=== PATIENT | female | born 1950 | race Caucasian/White ===

== ENCOUNTER → 2016-06-20 | Outpatient (CLI) | payer MEDICARE, OTHER ==
[~2016-06-20] MED LIST: ADVIL200 MG PO; ASPIRIN 32325 MG/TAB PO; ASPIRIN 81M81 MG/TA2 PO; CEPHALEXIN500 M1 PO; ELIQUIS 5MG PO; PACERONE400 MG PO; TAMBOCOR 1100 MG/TAB PO; TAZTIA120 PO; TENORMIN 2525 MG/TAB PO; VITAMIN D 1001000 IU PO; VITAMIN D1000 IU PO; ZESTRIL2.5 MG PO
== END ==
LOC: MC.RAD 09:38
DX: Z12.31 Encounter for screening mammogram for malignant neoplasm of breast (principal)

== ENCOUNTER 2016-06-30 08:07 | Outpatient (CLI) | payer MEDICARE, OTHER ==
[~2016-06-30] VITALS: Ht 167.7 cm; Wt 61.4 kg
[2016-06-30] VITALS (11 sets, daily range): BP systolic 94–155; BP diastolic 50–90; PULSE 60–76; TEMP 97–98
[~2016-06-30 08:07] MED LIST changes: -ADVIL200 MG PO; -ELIQUIS 5MG PO; -PACERONE400 MG PO; -TAMBOCOR 1100 MG/TAB PO; -TAZTIA120 PO; -TENORMIN 2525 MG/TAB PO; -VITAMIN D 1001000 IU PO; -ZESTRIL2.5 MG PO
[2016-06-30] MEDS ORDERED: TAMBOCOR 1100 MG/TAB PO (08:37)
[2016-06-30] MEDS ORDERED: TAZTIA120 PO (08:37)
[2016-06-30] MEDS ORDERED: ADVIL200 MG PO (08:38)
[2016-06-30 08:49] LABS: HEMATOCRIT 39.8 % (37.0-47.0); HEMOGLOBIN 13.3 g/dl (12.5-16.0); MEAN CELL VOLUME 99 fl (80.0-100.0); MEAN CORPUSCULAR HEMOGLOBIN 33 pg (27.0-31.0); MEAN CORPUSCULAR HGB CONC 33 g/dl (33.0-37.0); MEAN PLATELET VOLUME 11.2 fl (7.4-10.4); PLATELET COUNT 171 K/mm3 (130-400); RED BLOOD COUNT 4.04 M/mm3 (4.10-5.30); REDCELL DISTRIBUTION WIDTH-CV 13.3 % (11.5-14.5); WHITE BLOOD COUNT 3.1 K/mm3 (4.8-10.8)
[2016-06-30 08:56] LABS: PROTHROMBIN TIME 11.3 SECONDS (9.7-12.8)
[2016-06-30 09:12] LABS: CALCIUM 8.5 mg/dL (8.4-10.2); CREATININE, serum 1.06 mg/dL (0.52-1.25); POTASSIUM 4.3 mmol/L (3.4-5.0)
== END 2016-06-30 13:08 | disposition home or self-care (01) ==
LOC: COL.RAD 08:07
PROVIDERS: Internal Medicine Interventional Cardiology
DX: I08.0 Rheumatic disorders of both mitral and aortic valves (principal); I50.22 Chronic systolic (congestive) heart failure; I48.91 Unspecified atrial fibrillation; Z95.818 Presence of other cardiac implants and grafts; Z79.82 Long term (current) use of aspirin; Z79.899 Other long term (current) drug therapy
CPT/HCPCS: J2250; J3010

== ENCOUNTER 2016-08-18 05:15 | Observation (INO) | payer MEDICARE, OTHER ==
[~2016-08-18] VITALS: Ht 167.6 cm; Wt 62.7 kg
[2016-08-18] VITALS (11 sets, daily range): BP systolic 60–125; BP diastolic 36–71; PULSE 72–92; TEMP 97.1–98.3
[~2016-08-18 05:15] MED LIST changes: +ADVIL200 MG PO; +TAMBOCOR 1100 MG/TAB PO; +TAZTIA120 PO
[2016-08-18] MEDS ORDERED: VITAMIN D 1001000 IU PO (05:22)
[2016-08-18] MEDS ORDERED: TENORMIN 2525 MG/TAB PO (05:23)
[2016-08-18 05:54] LABS: BASO % 0.8 % (0.0-2.0); EOS # 0.1 (0.0-0.7); EOS % 3.2 % (0-4.0); GRAN # 1.9 (1.4-6.5); GRAN % 49.7 % (42.2-75.2); HEMATOCRIT 39.1 % (37.0-47.0); HEMOGLOBIN 13.5 g/dl (12.5-16.0); LYMPH # 1.2 (1.2-3.4); LYMPH % 32.3 % (20.0-51.0); MEAN CELL VOLUME 97 fl (80.0-100.0); MEAN CORPUSCULAR HEMOGLOBIN 33 pg (27.0-31.0); MEAN CORPUSCULAR HGB CONC 35 g/dl (33.0-37.0); MEAN PLATELET VOLUME 11.3 fl (7.4-10.4); MONO # 0.5 (0.1-0.6); MONO % 13.7 % (1.7-9.3); PLATELET COUNT 161 K/mm3 (130-400); RED BLOOD COUNT 4.04 M/mm3 (4.10-5.30); REDCELL DISTRIBUTION WIDTH-CV 13.1 % (11.5-14.5); WHITE BLOOD COUNT 3.7 K/mm3 (4.8-10.8)
[2016-08-18 06:07] LABS: ADJUSTED CALCIUM 8.9 mg/dL (8.4-10.2); ALANINE AMINOTRANSFERASE 59 U/L (9-52); ALBUMIN 3.7 gm/dL (3.5-5.0); ALKALINE PHOSPHATASE 60 U/L (50-136); ANION GAP 9 mmol/L (7-16); BILIRUBIN,TOTAL 0.7 mg/dL (0.0-1.0); BLOOD UREA NITROGEN 25 mg/dL (7-17); CALCIUM 8.7 mg/dL (8.4-10.2); CARBON DIOXIDE 26 mmol/L (22-30); CHLORIDE 106 mmol/L (98-107); CREATININE, serum 0.99 mg/dL (0.52-1.25); GLUCOSE 93 mg/dL (74-106); SODIUM 141 mmol/L (137-145)
[2016-08-18 06:18] LABS: B-TYPE NATRIURETIC PEPTIDE 2750 pg/mL (0-125)
[2016-08-18 06:23] LABS: TROPONIN-I < 0.012 ng/mL (0.000-0.034)
[2016-08-19 04:07] VITALS: BP 123/69; PULSE 65; TEMP 98.3
[2016-08-19 09:11] VITALS: BP 106/72; PULSE 64; TEMP 97.4
[2016-08-19] MEDS ORDERED: ELIQUIS 5MG PO (11:19)
[2016-08-19] MEDS ORDERED: PACERONE400 MG PO (11:20)
[2016-08-19] MEDS ORDERED: ZESTRIL2.5 MG PO (11:20)
== END 2016-08-19 14:03 | disposition home or self-care (01) ==
LOC: COL.ER 05:15 → PEDS 06:44
PROVIDERS: Emergency Medicine
DX: I48.91 Unspecified atrial fibrillation (principal); I48.92 Unspecified atrial flutter; I35.1 Nonrheumatic aortic (valve) insufficiency; I34.0 Nonrheumatic mitral (valve) insufficiency; Z79.01 Long term (current) use of anticoagulants
CPT/HCPCS: G0378; J2250; J3010; J7030

== ENCOUNTER → 2016-09-20 | Outpatient (CLI) | payer MEDICARE, OTHER ==
[~2016-09-20] MED LIST changes: +ELIQUIS 5MG PO; +PACERONE400 MG PO; +TENORMIN 2525 MG/TAB PO; +VITAMIN D 1001000 IU PO; +ZESTRIL2.5 MG PO
== END ==
LOC: COL.RAD 08:04
DX: K76.89 Other specified diseases of liver (principal); N28.89 Other specified disorders of kidney and ureter

== ENCOUNTER → 2017-07-12 | Outpatient (CLI) | payer MEDICARE, OTHER ==
[~2017-07-12] MED LIST changes: +CORDARONE200 MG/TAB PO; +COREG 3.123.125 MG/T PO; +PROTONIX 40MG T40 MG PO
== END ==
LOC: MC.RAD 06-25 14:00
DX: Z12.31 Encounter for screening mammogram for malignant neoplasm of breast (principal)

== ENCOUNTER 2017-07-17 13:53 | Outpatient (CLI) | payer MEDICARE, OTHER ==
[~2017-07-17] VITALS: Ht 167.6 cm; Wt 62.2 kg
[2017-07-17] MEDS ORDERED: TAMBOCOR50 MG PO (14:37)
[2017-07-17] MEDS ORDERED: PRINIVIL2.5 MG PO (14:38)
[2017-07-17] MEDS ORDERED: ROBITUSSIN A-C S1 M1 PO (14:39)
[2017-07-17 14:45] VITALS: BP 111/59; PULSE 78; TEMP 97.8
[2017-07-17 17:16] LABS: CALCIUM 7.4 mg/dL (8.4-10.2); CREATININE, serum 0.78 mg/dL (0.52-1.25); POTASSIUM 4.4 mmol/L (3.4-5.0)
== END 2017-07-17 17:54 ==
LOC: EUO 13:53
PROVIDERS: Registered Nurse
DX: E87.1 Hypo-osmolality and hyponatremia (principal); E83.51 Hypocalcemia; E87.8 Other disorders of electrolyte and fluid balance, not elsewhere classified; R42 Dizziness and giddiness
CPT/HCPCS: J7030

== ENCOUNTER 2017-07-17 17:25 | Inpatient (IN) | payer MEDICARE ==
[2017-07-17] VITALS (59 sets, daily range): BP systolic 135; BP diastolic 75; PULSE 87; TEMP 99.2; O2SAT 92–100
[~2017-07-17] VITALS: Ht 167.6 cm; Wt 60.0 kg
[~2017-07-17 17:25] MED LIST changes: +PRINIVIL2.5 MG PO; +ROBITUSSIN A-C S1 M1 PO; +TAMBOCOR50 MG PO
[2017-07-17 18:07] LABS: BASO % 0.2 % (0.0-2.0); EOS % 0.5 % (0-4.0); GRAN % 71.2 % (42.2-75.2); HEMOGLOBIN 12.1 g/dl (12.5-16.0); LYMPH # 1.4 (1.2-3.4); LYMPH % 17.1 % (20.0-51.0); MEAN CELL VOLUME 94 fl (80.0-100.0); MEAN CORPUSCULAR HEMOGLOBIN 33 pg (27.0-31.0); MEAN CORPUSCULAR HGB CONC 35 g/dl (33.0-37.0); MEAN PLATELET VOLUME 11.1 fl (7.4-10.4); MONO # 0.9 (0.1-0.6); MONO % 10.6 % (1.7-9.3); PLATELET COUNT 189 K/mm3 (130-400); RED BLOOD COUNT 3.65 M/mm3 (4.10-5.30)
[2017-07-17 18:10] LABS: HEMATOCRIT 34.3 % (37.0-47.0)
[2017-07-17 18:53] LABS: COLLECTION METHOD CLEAN CATCH
[2017-07-17 19:06] LABS: PH 6 (5-8); URINE APPEARANCE Clear; URINE BACTERIA None Seen /hpf; URINE BILIRUBIN Negative (NEGATIVE); URINE BLOOD Negative (NEGATIVE); URINE COLOR Yellow; URINE GLUCOSE Negative (NEGATIVE); URINE KETONE 1+ (NEGATIVE); URINE LEUKOCYTE ESTERASE 1+ (NEGATIVE); URINE NITRATE Negative (NEGATIVE); URINE PROTEIN(semi-quant) Negative (NEGATIVE)
[2017-07-17 19:24] LABS: THYROID STIMULATING HORMONE 2.73 uIU/mL (0.465-4.680)
[2017-07-17 20:15] LABS: ARTERIAL BLD GAS O2 SATURATION 87.3 % (92-100); ARTERIAL BLD GAS TCO2 CT 21.7; ARTERIAL BLOOD GAS BASE EXCESS -2.2 (-2-2); ARTERIAL BLOOD GAS HCO3 20.8 meq/L (22-26); ARTERIAL BLOOD GAS PCO2 30.5 mmHg (35-45); ARTERIAL BLOOD GAS PO2 50.2 mmHg (80-100); ARTERIAL BLOOD GAS pH 7.45 (7.35-7.45)
[2017-07-17 23:10] LABS: ARTERIAL BLD GAS O2 SATURATION 91.1 % (92-100); ARTERIAL BLD GAS TCO2 CT 22.7; ARTERIAL BLOOD GAS BASE EXCESS -1.7 (-2-2); ARTERIAL BLOOD GAS HCO3 21.7 meq/L (22-26); ARTERIAL BLOOD GAS PCO2 32.8 mmHg (35-45); ARTERIAL BLOOD GAS PO2 60.3 mmHg (80-100); ARTERIAL BLOOD GAS pH 7.44 (7.35-7.45)
[2017-07-17 23:42] LABS: ARTERIAL BLD GAS O2 SATURATION 96.4 % (92-100); ARTERIAL BLOOD GAS BASE EXCESS 0.5 (-2-2); ARTERIAL BLOOD GAS HCO3 20.3 meq/L (22-26); ARTERIAL BLOOD GAS PCO2 22.3 mmHg (35-45); ARTERIAL BLOOD GAS pH 7.58 (7.35-7.45)
[2017-07-18] VITALS (551 sets, daily range): BP systolic 99–121; BP diastolic 58–73; PULSE 71–88; TEMP 97.4–98.9; O2SAT 87–100
[2017-07-18 00:39] LABS: CALCIUM 7.7 mg/dL (8.4-10.2); CREATININE, serum 0.66 mg/dL (0.52-1.25)
[2017-07-18 00:55] LABS: ARTERIAL BLD GAS TCO2 CT 24.7; ARTERIAL BLOOD GAS BASE EXCESS 0.4 (-2-2); ARTERIAL BLOOD GAS HCO3 23.6 meq/L (22-26); ARTERIAL BLOOD GAS PO2 78.2 mmHg (80-100); ARTERIAL BLOOD GAS pH 7.46 (7.35-7.45)
[2017-07-18 06:12] LABS: BASO % 0.2 % (0.0-2.0); GRAN # 8.7 (1.4-6.5); GRAN % 80.8 % (42.2-75.2); HEMATOCRIT 37.1 % (37.0-47.0); HEMOGLOBIN 13.4 g/dl (12.5-16.0); LYMPH # 0.8 (1.2-3.4); LYMPH % 7.9 % (20.0-51.0); MEAN CELL VOLUME 91 fl (80.0-100.0); MEAN CORPUSCULAR HEMOGLOBIN 33 pg (27.0-31.0); MEAN CORPUSCULAR HGB CONC 36 g/dl (33.0-37.0); MEAN PLATELET VOLUME 11.5 fl (7.4-10.4); MONO # 1.2 (0.1-0.6); MONO % 10.9 % (1.7-9.3); PLATELET COUNT 181 K/mm3 (130-400); RED BLOOD COUNT 4.09 M/mm3 (4.10-5.30); REDCELL DISTRIBUTION WIDTH-CV 11.8 % (11.5-14.5)
[2017-07-18 06:26] LABS: ALBUMIN 3.7 gm/dL (3.5-5.0); CALCIUM 8.1 mg/dL (8.4-10.2); CREATININE, serum 0.69 mg/dL (0.52-1.25); MAGNESIUM 2.1 mg/dL (1.6-2.3); POTASSIUM 3.9 mmol/L (3.4-5.0); TOTAL PROTEIN 6.3 gm/dL (6.4-8.2)
[2017-07-18 09:50] LABS: ARTERIAL BLD GAS O2 SATURATION 97.4 % (92-100); ARTERIAL BLD GAS TCO2 CT 24.5; ARTERIAL BLOOD GAS BASE EXCESS 1.3 (-2-2); ARTERIAL BLOOD GAS HCO3 23.5 meq/L (22-26); ARTERIAL BLOOD GAS PCO2 30.8 mmHg (35-45); ARTERIAL BLOOD GAS PO2 95.7 mmHg (80-100)
[2017-07-18 20:24] LABS: CALCIUM 8.2 mg/dL (8.4-10.2); CREATININE, serum 0.82 mg/dL (0.52-1.25); POTASSIUM 4.3 mmol/L (3.4-5.0)
[2017-07-18 23:30] LABS: CORTISOL, AM (0800) 19 ug/dL (3-20)
[2017-07-19] VITALS (865 sets, daily range): BP systolic 81–185; BP diastolic 39–81; PULSE 77–89; TEMP 97–98.4; O2SAT 79–100
[2017-07-19 06:07] LABS: BASO % 0.3 % (0.0-2.0); EOS % 0.2 % (0-4.0); GRAN % 76.6 % (42.2-75.2); HEMOGLOBIN 13.5 g/dl (12.5-16.0); LYMPH # 0.9 (1.2-3.4); LYMPH % 9.4 % (20.0-51.0); MEAN CELL VOLUME 91 fl (80.0-100.0); MEAN CORPUSCULAR HEMOGLOBIN 34 pg (27.0-31.0); MEAN CORPUSCULAR HGB CONC 37 g/dl (33.0-37.0); MEAN PLATELET VOLUME 11.6 fl (7.4-10.4); MONO # 1.2 (0.1-0.6); MONO % 13.2 % (1.7-9.3); PLATELET COUNT 192 K/mm3 (130-400); RED BLOOD COUNT 4.01 M/mm3 (4.10-5.30); REDCELL DISTRIBUTION WIDTH-CV 11.9 % (11.5-14.5)
[2017-07-19 06:16] LABS: HEMATOCRIT 36.5 % (37.0-47.0)
[2017-07-19 06:33] LABS: CALCIUM 8.1 mg/dL (8.4-10.2); CREATININE, serum 0.82 mg/dL (0.52-1.25); POTASSIUM 3.9 mmol/L (3.4-5.0)
[2017-07-19 11:19] LABS: CHOLESTEROL RISK RATIO 2.6
[2017-07-20] VITALS (291 sets, daily range): BP systolic 69–96; BP diastolic 43–63; PULSE 70–90; TEMP 97.3–98.4; O2SAT 74–100
[2017-07-20 05:19] LABS: BASO % 0.4 % (0.0-2.0); EOS # 0.1 (0.0-0.7); EOS % 0.6 % (0-4.0); GRAN # 5.4 (1.4-6.5); GRAN % 66.2 % (42.2-75.2); HEMOGLOBIN 12.9 g/dl (12.5-16.0); LYMPH # 1.1 (1.2-3.4); MEAN CELL VOLUME 92 fl (80.0-100.0); MEAN CORPUSCULAR HEMOGLOBIN 33 pg (27.0-31.0); MEAN CORPUSCULAR HGB CONC 36 g/dl (33.0-37.0); MEAN PLATELET VOLUME 11.1 fl (7.4-10.4); MONO # 1.5 (0.1-0.6); MONO % 18.2 % (1.7-9.3); PLATELET COUNT 226 K/mm3 (130-400); REDCELL DISTRIBUTION WIDTH-CV 12.1 % (11.5-14.5)
[2017-07-20 05:21] LABS: HEMATOCRIT 35.8 % (37.0-47.0)
[2017-07-20 05:31] LABS: CREATININE, serum 1.19 mg/dL (0.52-1.25); MAGNESIUM 1.8 mg/dL (1.6-2.3); POTASSIUM 3.9 mmol/L (3.4-5.0)
[2017-07-20 15:22] LABS: ADRENOCORTICOTROPIC HORMONE 12 pg/mL (())
[2017-07-20 16:04] LABS: COLLECTION METHOD CLEAN CATCH
[2017-07-20 16:18] LABS: MUCOUS Present /lpf; PH 5 (5-8); SQUAMOUS EPITHELIAL 0-2 /hpf; URINE APPEARANCE Hazy; URINE BACTERIA Rare /hpf; URINE BILIRUBIN Negative (NEGATIVE); URINE BLOOD 2+ (NEGATIVE); URINE COLOR Yellow; URINE GLUCOSE Negative (NEGATIVE); URINE KETONE Negative (NEGATIVE); URINE LEUKOCYTE ESTERASE 1+ (NEGATIVE); URINE NITRATE Negative (NEGATIVE); URINE PROTEIN(semi-quant) 1+ (NEGATIVE); URINE UROBILINOGEN Negative (NEGATIVE)
[2017-07-21] VITALS: BP 100/73; PULSE 80; TEMP 97.4
[2017-07-21 04:00] VITALS: BP 98/62; PULSE 79; TEMP 98.5
[2017-07-21 05:47] LABS: CALCIUM 8.7 mg/dL (8.4-10.2); CREATININE, serum 0.91 mg/dL (0.52-1.25); POTASSIUM 4.6 mmol/L (3.4-5.0)
[2017-07-21 08:00] VITALS: BP 109/95; PULSE 87; TEMP 98.4
[2017-07-21 16:48] VITALS: BP 95/54; PULSE 89; TEMP 98.1
[2017-07-21 19:38] VITALS: BP 100/54; PULSE 96; TEMP 98.8
[2017-07-22] VITALS (7 sets, daily range): BP systolic 92–117; BP diastolic 51–63; PULSE 68–105; TEMP 98–98.8
[2017-07-22 06:00] LABS: BASO # 0.1 (0.0-0.2); BASO % 0.8 % (0.0-2.0); EOS # 0.1 (0.0-0.7); EOS % 1.9 % (0-4.0); GRAN # 3.7 (1.4-6.5); GRAN % 59.1 % (42.2-75.2); HEMOGLOBIN 11.9 g/dl (12.5-16.0); LYMPH # 1.3 (1.2-3.4); LYMPH % 20.9 % (20.0-51.0); MEAN CORPUSCULAR HEMOGLOBIN 33 pg (27.0-31.0); MEAN CORPUSCULAR HGB CONC 34 g/dl (33.0-37.0); MEAN PLATELET VOLUME 10.7 fl (7.4-10.4); MONO % 16.7 % (1.7-9.3); PLATELET COUNT 233 K/mm3 (130-400); RED BLOOD COUNT 3.59 M/mm3 (4.10-5.30); REDCELL DISTRIBUTION WIDTH-CV 12.3 % (11.5-14.5)
[2017-07-22 06:09] LABS: CALCIUM 8.5 mg/dL (8.4-10.2); CREATININE, serum 0.84 mg/dL (0.52-1.25); POTASSIUM 4.2 mmol/L (3.4-5.0)
[2017-07-22 06:14] LABS: MEAN CELL VOLUME 98 fl (80.0-100.0)
[2017-07-22 16:42] LABS: CALCIUM 8.4 mg/dL (8.4-10.2); CREATININE, serum 0.91 mg/dL (0.52-1.25); POTASSIUM 4.1 mmol/L (3.4-5.0)
[2017-07-23 04:23] VITALS: BP 128/63; PULSE 81; TEMP 98.5
[2017-07-23 07:06] LABS: BASO # 0.1 (0.0-0.2); EOS # 0.2 (0.0-0.7); EOS % 2.5 % (0-4.0); GRAN # 4.8 (1.4-6.5); GRAN % 65.7 % (42.2-75.2); HEMOGLOBIN 11.8 g/dl (12.5-16.0); LYMPH # 1.2 (1.2-3.4); LYMPH % 16.5 % (20.0-51.0); MEAN CELL VOLUME 97 fl (80.0-100.0); MEAN CORPUSCULAR HEMOGLOBIN 33 pg (27.0-31.0); MEAN CORPUSCULAR HGB CONC 34 g/dl (33.0-37.0); MEAN PLATELET VOLUME 10.7 fl (7.4-10.4); MONO % 13.6 % (1.7-9.3); PLATELET COUNT 212 K/mm3 (130-400); RED BLOOD COUNT 3.55 M/mm3 (4.10-5.30); REDCELL DISTRIBUTION WIDTH-CV 12.6 % (11.5-14.5)
[2017-07-23 07:10] LABS: HEMATOCRIT 34.4 % (37.0-47.0)
[2017-07-23 07:12] LABS: CALCIUM 8.4 mg/dL (8.4-10.2); CREATININE, serum 0.83 mg/dL (0.52-1.25)
[2017-07-23 07:23] LABS: POTASSIUM 4.3 mmol/L (3.4-5.0)
[2017-07-23 07:35] VITALS: BP 109/54; PULSE 77; TEMP 98.3
[2017-07-23 12:08] VITALS: BP 107/55; PULSE 74; TEMP 97.9
[2017-07-23 13:55] LABS: FOLATE (FOLIC ACID) 6.9 ng/mL (7.0-31.4)
[2017-07-23 16:17] VITALS: BP 104/62; PULSE 88; TEMP 98.1
[2017-07-23 19:06] VITALS: BP 104/47; PULSE 85; TEMP 98.5
[2017-07-23 23:40] VITALS: BP 104/57; PULSE 87; TEMP 97.9
[2017-07-24 04:25] VITALS: BP 94/54; PULSE 82; TEMP 97.7
[2017-07-24 06:59] LABS: CALCIUM 8.6 mg/dL (8.4-10.2); CREATININE, serum 0.87 mg/dL (0.52-1.25); POTASSIUM 4.5 mmol/L (3.4-5.0)
[2017-07-24 07:41] VITALS: BP 103/55; PULSE 74; TEMP 97.7
[2017-07-24] MEDS ORDERED: COREG 6.256.25 MG/TA PO (09:33)
[2017-07-24] MEDS ORDERED: ALDACTONE 25MG25 M1 PO (09:34)
== END 2017-07-24 13:45 | disposition home or self-care (01) | DRG 640 ==
LOC: COL.ER 17:25 → MEDICAL 18:25 → ICU 18:25 → MEDICAL 07-21 12:10
PROVIDERS: Emergency Medicine; Family Medicine; Internal Medicine; Internal Medicine Cardiovascular Disease; Internal Medicine Nephrology; Nurse Practitioner Family
PROC: 02HV33Z Insertion of Infusion Device into Superior Vena Cava, Percutaneous Approach (ICD-10-PCS; principal; 2017-07-19)
DX: E87.1 Hypo-osmolality and hyponatremia (principal); J96.01 Acute respiratory failure with hypoxia; I50.22 Chronic systolic (congestive) heart failure; N17.9 Acute kidney failure, unspecified; B33.24 Viral cardiomyopathy; Z85.72 Personal history of non-Hodgkin lymphomas; I48.91 Unspecified atrial fibrillation; Z79.01 Long term (current) use of anticoagulants; D50.9 Iron deficiency anemia, unspecified; E83.42 Hypomagnesemia
CPT/HCPCS: 99223-AI; 99232-AI; 99233-AI; 99239; A4314; C1751; C1894; J0696; J1940; J3475; J7030; Q9967

== ENCOUNTER → 2018-07-01 | Outpatient (CLI) | payer MEDICARE, OTHER ==
[~2018-07-01] MED LIST changes: +ALDACTONE 25MG25 M1 PO; +COREG 6.256.25 MG/TA PO
[2018-07-01 09:47] LABS: HEMATOCRIT 40.3 % (37.0-47.0); HEMOGLOBIN 13.3 g/dl (12.5-16.0); MEAN CELL VOLUME 100 fl (80.0-100.0); MEAN CORPUSCULAR HEMOGLOBIN 33 pg (27.0-31.0); MEAN CORPUSCULAR HGB CONC 33 g/dl (33.0-37.0); MEAN PLATELET VOLUME 11.5 fl (7.4-10.4); PLATELET COUNT 136 K/mm3 (130-400); RED BLOOD COUNT 4.05 M/mm3 (4.10-5.30); REDCELL DISTRIBUTION WIDTH-CV 13.2 % (11.5-14.5)
[2018-07-01 09:56] LABS: CALCIUM 8.9 mg/dL (8.4-10.2); CREATININE, serum 1.07 (0.52-1.25); POTASSIUM 4.3 mmol/L (3.4-5.0)
== END ==
LOC: COL.PUL 08:00
PROVIDERS: Internal Medicine Interventional Cardiology
DX: J98.6 Disorders of diaphragm (principal); Z95.1 Presence of aortocoronary bypass graft; Z95.810 Presence of automatic (implantable) cardiac defibrillator

== ENCOUNTER → 2018-09-16 | Outpatient (CLI) | payer MEDICARE, OTHER | LOC: MC.RAD 07-15 11:00 | DX: Z12.31 Encounter for screening mammogram for malignant neoplasm of breast (principal); Z95.0 Presence of cardiac pacemaker ==

== ENCOUNTER 2019-02-24 15:27 | Outpatient (RCR) | payer SELFPAY | END 2019-02-25 | disposition home or self-care (01) | LOC: COL.CR | DX: Z02.89 Encounter for other administrative examinations (principal) ==

== ENCOUNTER 2019-04-28 15:48 | Outpatient (RCR) | payer SELFPAY | END 2019-05-27 | disposition home or self-care (01) | LOC: COL.CR | DX: Z02.89 Encounter for other administrative examinations (principal) ==

== ENCOUNTER → 2019-09-18 | Outpatient (CLI) | payer MEDICARE, OTHER | LOC: MC.RAD 10:03 | DX: Z12.31 Encounter for screening mammogram for malignant neoplasm of breast (principal) ==

== ENCOUNTER → 2020-10-28 | Outpatient (CLI) | payer MEDICARE, OTHER | LOC: MC.RAD 11:24 | DX: Z12.31 Encounter for screening mammogram for malignant neoplasm of breast (principal) ==

== ENCOUNTER 2022-09-20 13:00 | Outpatient (RCR) | payer MEDICARE, OTHER ==
[~2022-09-20 13:00] MED LIST changes: +CALCIUM CITRAT950 MG; +ENTRESTO 24 MG1 EACH PO; +FARXIGA10 PO; +PROTONIX20 MG PO; +VERQUVO5 MG PO
[2022-10-09] MEDS ORDERED: COREG 6.256.25 MG/TA PO (16:25)
[2022-10-09] MEDS ORDERED: ALDACTONE 25MG25 M1 PO (16:26)
== END 2022-10-12 | disposition home or self-care (01) ==
LOC: WSPT
DX: M54.2 Cervicalgia (principal)

== ENCOUNTER → 2023-01-11 | Outpatient (RCR) | payer MEDICARE, OTHER | END | disposition home or self-care (01) | LOC: WSPT | DX: M54.6 Pain in thoracic spine (principal); M54.2 Cervicalgia; M54.50 Low back pain, unspecified; G89.29 Other chronic pain ==